=== PATIENT | female | born 1935 | race Caucasian/White ===

== ENCOUNTER 2016-12-14 06:39 | Day surgery (SDC) | payer MEDICARE ==
[2016-12-09 13:44] LABS: HEMATOCRIT 36.9 % (36.0-48.0); HEMOGLOBIN 12.5 g/dL (12.0-16.0)
[2016-12-09 13:58] LABS: BUN (BLOOD UREA NITROGEN) 9 MG/DL (6-23); CALCIUM, SERUM 9.1 MG/DL (8.5-10.4); CHLORIDE, SERUM 102 MMOL/L (96-112); CO2 (CARBON DIOXIDE) 29 MMOL/L (24-34); CREATININE 0.64 MG/DL (0.55-1.02); GFR AFRICAN AMERICAN 98 ML/MIN (>=60); GFR NON AFRICAN AMERICAN 85 ML/MIN (>=60); GLUCOSE, SERUM 121 MG/DL (60-99); POTASSIUM, SERUM 4.1 MMOL/L (3.5-5.3); SODIUM, SERUM 142 MMOL/L (135-148)
--- NOTE | ~2016-12-14 | OP ---
Record Of Operation [facility] [address] [place]. [address] NAME: MIGDALIA RESENDIZ : 39 STATUS : REG [facility]#: [id number] AGE: 81 ADM/REG DATE : 12/14/16 MR#: [id number] REPORT SERV DATE: 12/15/16 DICTATED BY: APRIL STEPHENSON DATE: 12/15/16 REPORT STATUS : Draft TRANSCRIBED BY: SOLOMON DATE: 12/15/16 DATE OF PROCEDURE: 12/14/2016 PREOPERATIVE DIAGNOSIS: Basal cell carcinoma of the inferior aspect of the right nasal ala rim. POSTOPERATIVE DIAGNOSIS: Basal cell carcinoma of the inferior aspect of the right nasal ala rim. PROCEDURES: 1. Re-excision of right ala basal cell carcinoma with frozen section analysis, final defect size 8 mm x 7 mm. 2. Composite auricular graft including skin and cartilage 1.2 cm x 8 cm. ANESTHESIA: General endotracheal anesthesia with 6 mL of 1% lidocaine with 1:100,000 epinephrine. ESTIMATED BLOOD LOSS: Less than 10 mL. IV FLUIDS: 800 mL. COMPLICATIONS: None immediate. SPECIMENS: 1. Re-excision of right nasal ala basal cell carcinoma. 2. Additional 6-12 o'clock margin. 3. Additional 3 o'clock margin. 4. Second additional 3 o'clock margin. INDICATION FOR PROCEDURE: This is a 81-year-old female who presented to the clinic with a basal cell carcinoma in the inferior aspect of her right nasal ala rim. We attempted to do a local excision in the office setting, however, we still had cancer close to the margin on one side. Therefore after discussion of trying topical chemotherapeutic agent versus surgical excision, she wanted to pursue surgical excision for definitive excision of the area. With that in mind, the risks including, but not limited to, bleeding, infection, scarring, need for revisional surgery, etc., were explained to her in the preoperative setting and informed consent obtained. She agrees to proceed as outlined today. PROCEDURE IN DETAIL: The patient was identified in the preoperative holding area where the scar from the previous excision site was readily visible and marked. She had antibiotics initiated and SCDs placed prior to being transported to the operating room. Once in the operating room, she was placed supine on the operating table with arms tucked. After smooth induction of general endotracheal anesthesia, the patient's face, ear, and neck area were prepped and draped in standard surgical fashion. The area on the right nasal ala rim was measured and marked, and local anesthetic was instituted for a field block and vasoconstriction. This was allowed to set for about seven minutes and a full-thickness Record Of Operation [facility] [address] [place]. [address] NAME: MIGDALIA RESENDIZ : 39 STATUS : REG [facility] [place] PAT#: [id number] AGE: 81 ADM/REG DATE : 12/14/16 MR#: [id number] REPORT SERV DATE: 12/15/16 DICTATED BY: APRIL STEPHENSON DATE: 12/15/16 REPORT STATUS : Draft TRANSCRIBED BY: SOLOMON DATE: 12/15/16 excision of the area was made with 15 blade scalpel down to the level of the underlying subcutaneous tissue. It was marked with a stitch in the 12 o'clock position and passed off the table for pathological analysis for frozen section. In the mean time, gentle pressure was held to the area as well as a little bit of electrocautery to control bleeding. After a moment in time, we had heard back from the pathologist, who stated that we still had tumor present at the 12, 9, and 6 margin as well as the 3 o'clock margin. With that in mind, additional specimen was marked and excised full thickness down to the level of the underlying subcutaneous tissue with scalpel. Sutures were placed in appropriate markings and positions, and they were passed to pathology for frozen section analysis once again. Pressure was held and minimal electrocautery applied to control the bleeding. After a short period of time, we heard back was pathologist who said that the 6, 9, and 12 o'clock margins were now clear, however, we still had tumor grossly positive and actually increasing at the 3 o'clock margin. For that reason, an additional 12, 3, to 6 margin was taken about one millimeter and a half to 2 mm in width. Full-thickness down to the level of the underlying subcutaneous tissue. It was passed off the table after marking with a suture and gentle pressure and mild electrocautery were applied. Again, we heard back from the pathology, and at this point, all the margins were clear. With that in mind, I elevated the surrounding tissues using blunt and sharp dissection. We did encounter some bleeding again at the time which was controlled with electrocautery. I attempted to do a primary linear closure in the direction that the excision perpetuated itself. However, when that was reapproximated she had significant notching of the right alar rim with visibility of the medial aspect of her nasal vestibule. Because of the cosmetically unacceptable appearance this gave, I then removed the sutures and decided to proceed with a composite graft of skin and cartilage tissue from her right ear. To do so, I marked off a 1.2 cm area near the postauricular sulcus to use for my excision. I constructed an 8 mm x 7 mm skin paddle that was excised out of full thickness in elliptical fashion using a 15 blade scalpel after induction of about 3 mL of local anesthetic. After the skin was excised into, I then elevated the surrounding tissue to free up for the cartilage graft aspect. After this was done, the cartilage was incised into sharply with a scalpel and freed from the anterior ear tissue with sharp dissection with an angled scissors. After the cartilage graft was freed and harvested in its entirety with a skin paddle attached, it was then placed in a saline moistened gauze and set on the back table. I then copiously irrigated the newly created defect and assured there was no significant bleeding, which there was none. The site was then closed in multiple layer fashion using interrupted 5-0 Vicryl sutures for deep tissue reapproximation followed by a running 5-0 fast absorbing suture for the epidermal reapproximation. The area was cleansed and Dermabond was placed on it. Eventually, a glass mastoid type ear protector device was placed at the end of the case for additional protection. Attention was then refocused to the nasal area, where the excess skin was trimmed off the skin paddle from the composite graft using sharp scissors. The cartilage was then tucked into the newly created pocket to provide for additional room stability and then the skin graft was inset using just two interrupted 5-0 Vicryl sutures to anchor the deeper tissue and then followed by interrupted and 5-0 chromic sutures for the epidermal reapproximation to the graft. A makeshift bolster dressing was then created by application of antibiotic ointment, followed by Xeroform gauze, Telfa sponges, and Steri-Strip tape. The patient tolerated procedure well without any initial sign of complication. She was awakened, extubated, transferred to the postanesthesia care unit, where she was recovered without any sign of difficulty. Sponge and instrument counts were correct and verified at Record Of Operation [place] [address] [address] [address] NAME: MIGDALIA RESENDIZ : 39 STATUS : REG [facility] [place] PAT#: [id number] AGE: 81 ADM/REG DATE : 12/14/16 MR#: [id number] REPORT SERV DATE: 12/15/16 DICTATED BY: APRIL STEPHENSON DATE: 12/15/16 REPORT STATUS : Draft TRANSCRIBED BY: MODMadi DATE: 12/15/16 the end the case. HUMAIRA/SOLOMON April Stephenson MD / [id number] CC: MD Bj Neal M.D.
[~2016-12-14 06:39] MED LIST: ASA5GR PO; ATENOLOL; CALTRA600D PO; CARDIZEM LA360 MG PO; LEVSINTAB SL; MAG PO; MELATONIN5 M1 PO; METAMUCIL CAN7 OZ PO; MULTIPLE VIT PO; PHILLIPS COLON HEALT PO; PRESERVISION A1 EAC1 PO; PROMEGA PO; RANITIDINE300 MG PO; SUPER B COMP; VITAMIN D31000 UNIT PO; X25 PO; ZOVI200CAP
== END 2016-12-14 23:59 | disposition home or self-care (01) ==
LOC: SDC 06:39
PROVIDERS: Plastic Surgery
PROC: 09R Ear, Nose, Sinus, Replacement (ICD-10-PCS; principal; 2016-12-14 07:45)
DX: C44.311 Basal cell carcinoma of skin of nose (principal); I10 Essential (primary) hypertension; G47.33 Obstructive sleep apnea (adult) (pediatric); K21.9 Gastro-esophageal reflux disease without esophagitis; G25.81 Restless legs syndrome; F32.9 Major depressive disorder, single episode, unspecified; F41.9 Anxiety disorder, unspecified; Z99.81 Dependence on supplemental oxygen; Z90.11 Acquired absence of right breast and nipple; Z90.710 Acquired absence of both cervix and uterus; Z85.3 Personal history of malignant neoplasm of breast
CPT/HCPCS: 80048; 85014; 85018; 88305; 88331; 93005; A9270-GY; J0690; J2405; J2710; J3010